=== PATIENT | male | born 1990 | race Caucasian/White ===

== ENCOUNTER 2019-07-20 22:03 | Emergency (ER) | payer MEDICAID ==
[~2019-07-20] VITALS: Ht 177.8 cm; Wt 77.1 kg
[2019-07-20] MEDS ORDERED: GABA600T12 PO (22:09)
[2019-07-20] MEDS ORDERED: LORAZEPAM 0.5 MG TABLET PO ONE (22:30)
[2019-07-20] MEDS ORDERED: GABAPENTIN 400 MG CAPSULE PO ONE (22:30)
[2019-07-20] MEDS ORDERED: VENLAFAXINE 25 MG TABLET PO ONE (22:30)
[2019-07-20] MEDS ORDERED: VENLAFAXINE XR 37.5 MG CAP.SR.24H PO ONE (22:30)
[2019-07-20] MEDS ORDERED: GABAPENTIN 300 MG CAPSULE ONE (22:31)
[2019-07-20] MEDS ORDERED: LORAZEPAM 1 MG TABLET ONE (22:31)
[2019-07-20] MEDS ORDERED: VENLAFAXINE XR 37.5 MG CAP.SR.24H ONE (22:31)
--- NOTE | 2019-07-20 22:43 | NUR ---
Patient given written and verbal discharge instructions. Patient verbalizes understanding of instructions. Patient is ambulatory with steady gait. Refuses offer of residential placement. Patient given list of available shelters in surrounding area.
[2019-07-20 22:48] VITALS: BP 122/81
== END 2019-07-20 22:50 | disposition home or self-care (01) ==
LOC: ER 22:07
DX: F13.239 Sedative, hypnotic or anxiolytic dependence with withdrawal, unspecified (principal); R56.9 Unspecified convulsions; Z59.0 Homelessness; F15.10 Other stimulant abuse, uncomplicated; F11.10 Opioid abuse, uncomplicated; F41.9 Anxiety disorder, unspecified; Z87.738 Personal history of other specified (corrected) congenital malformations of digestive system; Z79.899 Other long term (current) drug therapy
CPT/HCPCS: A4663

== ENCOUNTER 2019-09-12 17:14 | Emergency (ER) | payer MEDICAID ==
[~2019-09-12] VITALS: Ht 172.7 cm; Wt 79.4 kg
[~2019-09-12 17:14] MED LIST: GABA600T12 PO
[2019-09-12] MEDS ORDERED: DIAZ10TA PO (17:27)
[2019-09-12] MEDS ORDERED: CLON1TAB PO (17:27)
[2019-09-12] MEDS ORDERED: LORAZEPAM 1 MG TABLET PO ONE (17:45)
[2019-09-12] MEDS ORDERED: IV NS 1000 ML 1,000 ML IV ONE (17:45)
[2019-09-12] MEDS ORDERED: LORAZEPAM 2 MG/1 ML VIAL ONE (17:49)
[2019-09-12 17:56] LABS: BASOPHILS % (AUTO) 0.4 % (0.0-2.0); EOSINOPHILS % (AUTO) 0.1 % (0.0-7.0); HEMATOCRIT 43.4 % (36.7-47.1); HEMOGLOBIN 14.5 g/dL (12.5-16.3); LYMPHOCYTES # (AUTO) 3.1 K/uL (20.0-40.0); MEAN CORPUSCULAR HEMOGLOBIN 30.3 uug (23.8-33.4); MEAN CORPUSCULAR HGB CONC 33 g/dL (32.5-36.3); MEAN CORPUSCULAR VOLUME 91.1 fL (73.0-96.2); MONOCYTES # (AUTO) 0.6 K/uL (2.0-10.0); MONOCYTES % (AUTO) 9.8 % (0.0-11.0); NEUTROPHILS # (AUTO) 2.6 K/uL (1.8-8.9); NEUTROPHILS % (AUTO) 40.7 % (38.5-71.5); PLATELET COUNT (AUTO) 271 K/uL (152-348); RED BLOOD CELL COUNT(AUTO) 4.76 MIL/uL (4.06-5.63); WHITE BLOOD COUNT (AUTO) 6.4 K/uL (3.6-10.2)
[2019-09-12 18:09] LABS: ETHANOL < 3 MG/DL (0-0)
[2019-09-12 18:13] LABS: CARBON DIOXIDE 26 mmol/L (21-32); CHLORIDE 104 mmol/L (98-107); CREATININE 0.8 mg/dL (0.6-1.3); GLUCOSE 106 mg/dL (74-106); POTASSIUM 4.1 mmol/L (3.5-5.1); UREA NITROGEN, BLOOD 12 mg/dL (7-18)
[2019-09-12 18:19] LABS: ALANINE AMINOTRANSFERASE 68 U/L (16-63); ALKALINE PHOSPHATASE 103 U/L (50-136); ASPARTATE AMINOTRANSFERASE 46 U/L (15-37); BILIRUBIN,DIRECT 0.3 mg/dL (0.0-0.2); BILIRUBIN,TOTAL 1.4 mg/dL (0.2-1.0); TOTAL PROTEIN, SERUM 8.4 g/dL (6.4-8.2)
[2019-09-12 18:20] LABS: MAGNESIUM 2.3 mg/dL (1.8-2.4); PHOSPHOROUS 3.2 mg/dL (2.5-4.9)
--- NOTE | 2019-09-12 18:39 | NUR ---
Patient discharged to home in stable condition. Written and verbal after care instructions given. Patient verbalizes understanding of instructions. Stressed follow up or return to ER for worsening s/s.pt walks in steady gait. pt says feels better.
[2019-09-12 18:40] VITALS: BP 121/88
== END 2019-09-12 18:54 | disposition home or self-care (01) ==
LOC: ER 17:14
DX: F13.239 Sedative, hypnotic or anxiolytic dependence with withdrawal, unspecified (principal); R56.9 Unspecified convulsions; T42.4X5A Adverse effect of benzodiazepines, initial encounter; Y92.042 Bedroom in boarding-house as the place of occurrence of the external cause; F11.10 Opioid abuse, uncomplicated; F43.12 Post-traumatic stress disorder, chronic; X58.XXXS Exposure to other specified factors, sequela; F15.20 Other stimulant dependence, uncomplicated; F17.290 Nicotine dependence, other tobacco product, uncomplicated
CPT/HCPCS: 36415; 70450; 71045; 80048; 80076; 80307; 83735; 84100; 84484; 85025; 93005; 96361; 96374; 99285; 99406; J2060; 70030-TC; A4663; G0480; J7030

== ENCOUNTER 2019-10-08 17:06 | Emergency (ER) | payer MEDICAID ==
[~2019-10-08] VITALS: Ht 177.8 cm; Wt 79.4 kg
[~2019-10-08 17:06] MED LIST changes: +CLON1TAB PO; +DIAZ10TA PO; -GABA600T12 PO
--- NOTE | 2019-10-08 17:10 | NUR ---
Dr. Calles at bedside for MSE
--- NOTE | 2019-10-08 17:24 | NUR ---
Patient given written and verbal discharge instructions. Patient verbalizes understanding of instructions. Patient is ambulatory with steady gait. Refuses offer of senior living placement. Patient given list of available shelters in surrounding area. NAD noted
[2019-10-08 17:31] VITALS: BP 128/73
== END 2019-10-08 17:24 | disposition home or self-care (01) ==
LOC: ER 17:09
DX: Z76.0 Encounter for issue of repeat prescription (principal); F13.20 Sedative, hypnotic or anxiolytic dependence, uncomplicated; Z86.69 Personal history of other diseases of the nervous system and sense organs; Z59.0 Homelessness; Z87.738 Personal history of other specified (corrected) congenital malformations of digestive system
CPT/HCPCS: A4663

== ENCOUNTER 2019-10-16 14:17 | Emergency (ER) | payer MEDICAID ==
[~2019-10-16] VITALS: Ht 177.8 cm; Wt 68.0 kg
--- NOTE | 2019-10-16 14:45 | NUR ---
Dr. Tsang at bedside for MSE
--- NOTE | 2019-10-16 14:52 | NUR ---
Called Magdy Browning construction ironworker helper for consult
--- NOTE | 2019-10-16 15:12 | NUR ---
[facility] Staff Physician at bedside
[2019-10-16] MEDS ORDERED: GABAPENTIN 300 MG CAPSULE PO ONE (15:30)
[2019-10-16] MEDS ORDERED: GABAPENTIN 300 MG CAPSULE ONE (15:31)
--- NOTE | 2019-10-16 15:47 | NUR ---
Patient given written and verbal discharge instructions. Patient verbalizes understanding of instructions. Patient is ambulatory with steady gait. Refuses offer of senior living placement. Patient given list of available shelters in surrounding area.
--- NOTE | 2019-10-16 15:51 | NUR ---
Social Work Consult: SW was called for a consult for this 28-year-old homeless male who presented himself to the Emergency Department for prescription management and physical complaints. SW met with patient who presents as alert and oriented x4. Patient stated that he was at [facility] for 5 days and was recently discharged. Patient has no support system and has family living in another state which he speaks to on the phone for emotional support. Patient denied suicidal or homicidal ideation. Patient is self-dependable and able to plan for self-care. Patient requested to use the phone to call his outpatient case manager at [facility]. Patient requested a t-shirt. SW provided patient with a long sleeve t-shirt. SW offered patient a TAP card, however, patient stated that he does not need one. RAYMOND provided patient with a copy of the [facility] homeless directory which provides information on locations for hot meals, sack lunches, food pantries, and showers. RAYMOND provided a list of mental health clinics: [facility] [address] [place] [address], ; [facility] [address] [place] [address], ; [facility] [address] [place] [address], ; a list of medical clinics: [facility] [address], [place]. [place], ; [facility] [address], [address], [place] [address]; [facility] [address] [facility] [place] [address], ; and a list of substance abuse programs: [facility] Substance Abuse Self-helpline ; [facility] ; [facility] ; [facility] ; [facility] ; [facility] [phone]; [facility] [phone]. Patient signed the homeless waiver form and a copy was placed in the chart. Patients mood was calm and appropriate at discharge. He was agreeable with the discharge plan.
[2019-10-16 15:53] VITALS: BP 101/51
== END 2019-10-16 15:53 | disposition home or self-care (01) ==
LOC: ER 14:17
DX: Z76.0 Encounter for issue of repeat prescription (principal); Z59.0 Homelessness; Z86.69 Personal history of other diseases of the nervous system and sense organs; F13.10 Sedative, hypnotic or anxiolytic abuse, uncomplicated
CPT/HCPCS: A4663